=== PATIENT | female | born 1975 | race Hispanic/Latino ===

== ENCOUNTER 2022-12-24 11:40 | Emergency (ER) | payer BC ==
[~2022-12-24] VITALS: Ht 157.5 cm; Wt 70.3 kg
--- OUTSIDE RECORDS SUMMARY | 2022-12-24 12:13 | XMS ---
PreManage Notification: [employer] Security Educational Therapist Events No recent Security Events currently on file CRITERIA MET - [facility] - 3 Facilities in 90 Days CARE PROVIDERS There are no care providers on record at this time. Xavi has no Care Guidelines for this patient. [facility] VISIT COUNT ([address] [facility] [place] 1 [facility] [place] [facility] TOTAL 3 NOTE: Visits indicate total known visits. ED/[facility] [place] TRACKING (12 MO.) 12/24/2022 11:[address] [facility] [place] TYPE: Emergency COMPLAINT: - BODYACHES 11/06/2022 10:08 [facility] [place] TYPE: Emergency DIAGNOSES: - Secondary malignant neoplasm of bone - Emesis - Neoplasm related pain (acute) (chronic) - Emisis - Nausea 10/06/2022 22:28 [facility] [place] TYPE: Emergency DIAGNOSES: - Neoplasm related pain (acute) (chronic) - Arm Pain INPATIENT VISIT TRACKING (12 MO.) No inpatient visits to display in this time frame [email or web address]
[2022-12-24] MEDS ORDERED: HYDROMORPHONE HC2 MG PO (12:39)
[2022-12-24] MEDS ORDERED: INTRAROSA6.5 MG PV (12:46)
[2022-12-24] MEDS ORDERED: PREVACID30 MG PO (12:47)
[2022-12-24] MEDS ORDERED: COREG25 MG PO (12:47)
[2022-12-24] MEDS ORDERED: BENICAR20 MG PO (12:48)
[2022-12-24] MEDS ORDERED: DULOXETINE HCL40 MG PO (12:49)
[2022-12-24] MEDS ORDERED: WELLBUTRIN SR150 MG PO (12:49)
[2022-12-24] MEDS ORDERED: DILAUDID2 MG PO (12:50)
== END 2022-12-24 15:16 | disposition home or self-care (01) ==
LOC: ED 11:40
DX: C50.919 Malignant neoplasm of unspecified site of unspecified female breast (principal); M89.8X9 Other specified disorders of bone, unspecified site; Z88.1 Allergy status to other antibiotic agents; Z88.5 Allergy status to narcotic agent; Z79.899 Other long term (current) drug therapy
CPT/HCPCS: 96374; 96375; 96376; 99283-25; J1100; J1170; J1885; J2405